=== PATIENT | female | born 1945 | race Caucasian/White ===

== ENCOUNTER 2019-06-22 13:57 | Inpatient (IN) ==
[2019-06-22] MEDS ORDERED: *HR* FentaNYL (PF) 100 MCG/2 ML VIAL IVP ONE (15:15)
[2019-06-22] MEDS ORDERED: Gadolinium Contrast Agent (WT Based) IV PRN (15:16)
[2019-06-22 15:24] LABS: Basophils # 0.1 K/mcL (0.0-0.2); Basophils % 0.8 %; Eosinophils # 0.1 K/mcL (0.0-0.6); Hemoglobin 14.1 g/dL (11.5-15.4); Immature Granulocytes % 0.2 % (0-4); Lymphocytes # 1.9 K/mcL (0.6-4.6); Lymphocytes % 29.7 %; Mean Corpuscular HGB Conc 36.2 g/dL (31.6-35.5); Mean Corpuscular Hemoglobin 31.7 pg (28.0-33.3); Mean Corpuscular Volume 87.6 fL (83.0-100.0); Mean Platelet Volume 9.9 fL (9.4-12.4); Monocytes # 0.7 K/mcL (0.0-1.3); Monocytes % 10.1 %; Neutrophils # 3.7 K/mcL (1.6-8.9); Platelet Count 185 K/mcL (140-400); Red Blood Count 4.45 M/mcL (3.82-4.97); Red Cell Distribution Width 12.4 % (11.5-14.5); Segmented Neutrophils % 57.2 %; White Blood Count 6.4 K/mcL (4.3-11.1)
[2019-06-22 15:46] LABS: Alanine Aminotransferase 24 Units/L (7-52); Albumin 4.3 g/dL (3.5-5.7); Albumin/Globulin Ratio 1.4 (1.1-2.2); Alkaline Phosphatase 52 Units/L (34-104); Aspartate Amino Transferase 19 Units/L (13-39); BUN/Creatinine Ratio 15 (6-26); Bilirubin,Total 0.5 mg/dL (0.3-1.0); Blood Urea Nitrogen 16 mg/dL (8-23); Calcium 9.5 mg/dL (8.6-10.3); Carbon Dioxide 23 mEq/L (23-29); Chloride 103 mEq/L (98-107); Glucose 106 mg/dL (70-105); Osmolality,Calculated 284 (280-300); Potassium 4.3 mEq/L (3.5-5.1); Sodium 136 mEq/L (136-145); Total Protein 7.3 g/dL (6.4-8.9); Troponin I < 0.03 ng/mL (< 0.04); eGFR For African Americans 60 (> 60); eGFR For Non-African Americans 49 (> 60)
[2019-06-22] MEDS ORDERED: *HR* LORazepam 2 MG/ML VIAL IVP ONE (15:47)
[2019-06-22] MEDS ORDERED: *HR* HYDROmorphone (PF) 1 MG/ML SYRINGE IVP ONE ×2 (16:14→18:50)
[2019-06-22] MEDS: valACYclovir 500 MG TABLET PO SCH ×2 (16:24→21:21)
[2019-06-22] MEDS ORDERED: Ondansetron 4 MG/2 ML VIAL IVP ONE (16:27)
[2019-06-22] MEDS ORDERED: Ondansetron 4 MG/2 ML VIAL IVP PRN (21:26)
[2019-06-22] MEDS ORDERED: Naloxone 0.4 MG/ML INJ IVP PRN (21:26)
[2019-06-22] MEDS ORDERED: 0.9 % Sodium Chloride 1,000 ML IVC SCH (21:30)
[2019-06-22] MEDS: diazePAM 10 MG TABLET PO SCH (22:08)
[2019-06-22] MEDS: Gabapentin 100 MG CAPSULE PO SCH (23:11)
[2019-06-23 04:51] LABS: Basophils # 0.1 K/mcL (0.0-0.2); Basophils % 0.7 %; Eosinophils # 0.1 K/mcL (0.0-0.6); Eosinophils % 1.8 %; Hematocrit 38.5 % (35.3-44.9); Hemoglobin 13.2 g/dL (11.5-15.4); Immature Granulocytes % 0.3 % (0-4); Lymphocytes # 2.1 K/mcL (0.6-4.6); Lymphocytes % 30.6 %; Mean Corpuscular HGB Conc 34.3 g/dL (31.6-35.5); Mean Corpuscular Hemoglobin 30.8 pg (28.0-33.3); Mean Platelet Volume 10.1 fL (9.4-12.4); Monocytes # 0.7 K/mcL (0.0-1.3); Monocytes % 9.7 %; Neutrophils # 3.8 K/mcL (1.6-8.9); Platelet Count 188 K/mcL (140-400); Red Blood Count 4.28 M/mcL (3.82-4.97); Red Cell Distribution Width 12.6 % (11.5-14.5); Segmented Neutrophils % 56.9 %; White Blood Count 6.7 K/mcL (4.3-11.1)
[2019-06-23 04:55] LABS: Prothrombin Time 11.8 Seconds (9.4-12.1)
[2019-06-23 04:58] LABS: Activated Partial Thrombo Time 30.3 Seconds (26.0-36.0)
[2019-06-23 05:12] LABS: Alanine Aminotransferase 19 Units/L (7-52); Albumin 3.9 g/dL (3.5-5.7); Albumin/Globulin Ratio 1.5 (1.1-2.2); Alkaline Phosphatase 51 Units/L (34-104); Aspartate Amino Transferase 17 Units/L (13-39); BUN/Creatinine Ratio 12 (6-26); Bilirubin,Total 0.5 mg/dL (0.3-1.0); Blood Urea Nitrogen 12 mg/dL (8-23); Calcium 9.1 mg/dL (8.6-10.3); Carbon Dioxide 25 mEq/L (23-29); Chloride 103 mEq/L (98-107); Chol/HDL Ratio 3.8 (0-4.9); Cholesterol 159 mg/dL (< 200); Globulin 2.6 g/dL (2.4-3.5); Glucose 100 mg/dL (70-105); HDL Cholesterol 42 mg/dL (40-59); LDL Cholesterol,Calculated 97 mg/dL (0-99); Osmolality,Calculated 286 (280-300); Potassium 3.9 mEq/L (3.5-5.1); Sodium 138 mEq/L (136-145); Total Protein 6.5 g/dL (6.4-8.9); Triglycerides 102 mg/dL (< 150); eGFR For African Americans > 60 (> 60); eGFR For Non-African Americans 54 (> 60)
[2019-06-23] MEDS: *HR* Heparin 5,000 UNIT/ML VIAL SQ SCH ×3 (05:34→21:15)
[2019-06-23] MEDS ORDERED: *HR* Labetalol 20 MG/4 ML SYRINGE IVP PRN (07:42)
[2019-06-23] MEDS: Furosemide 20 MG TABLET PO SCH (08:32)
[2019-06-23] MEDS: valACYclovir 500 MG TABLET PO SCH ×2 (08:32→21:13)
[2019-06-23] MEDS: diazePAM 10 MG TABLET PO SCH ×2 (08:32→21:13)
[2019-06-23] MEDS: Aspirin Enteric Coated 81 MG Tablet PO SCH (08:32)
[2019-06-23] MEDS: Gabapentin 100 MG CAPSULE PO SCH ×3 (08:32→21:14)
[2019-06-24] MEDS: *HR* Heparin 5,000 UNIT/ML VIAL SQ SCH ×2 (05:38→20:30)
[2019-06-24] MEDS: Furosemide 20 MG TABLET PO SCH (09:25)
[2019-06-24] MEDS: valACYclovir 500 MG TABLET PO SCH ×2 (09:25→20:09)
[2019-06-24] MEDS: diazePAM 10 MG TABLET PO SCH ×2 (09:25→20:09)
[2019-06-24] MEDS: Gabapentin 100 MG CAPSULE PO SCH ×2 (09:25→20:09)
[2019-06-24] MEDS: Aspirin Enteric Coated 81 MG Tablet PO SCH (09:31)
[2019-06-24] MEDS ORDERED: Gabapentin 100 MG CAPSULE PO ONE (10:45)
[2019-06-24 17:25] LABS: Clarity,Urine Cloudy (Clear); Color,Urine Yellow (Yellow)
[2019-06-24 17:26] LABS: Bilirubin,Urine Negative (Negative); Blood,Urine Large (Negative); Glucose,Urine (UA) Normal (Normal); Ketones,Urine Negative (Negative); Leukocyte Esterase,Urine Negative (Negative); Nitrite,Urine Negative (Negative); Protein,Urine 30 mg/dL (Neg-Trace); Specific Gravity,Urine 1.015 (1.010-1.025); Urobilinogen,Urine Normal (Normal)
[2019-06-24 17:39] LABS: Squamous Epithelial Cell,Urine Moderate per lpf (None-Few)
[2019-06-24 17:40] LABS: RBC,Urine 30-50 per hpf (0-3); WBC,Urine 0-3 per hpf (0-3)
[2019-06-25] MEDS: valACYclovir 500 MG TABLET PO SCH ×2 (08:47→21:53)
[2019-06-25] MEDS: Gabapentin 100 MG CAPSULE PO SCH ×2 (08:47→21:53)
[2019-06-25] MEDS: Furosemide 20 MG TABLET PO SCH (08:47)
[2019-06-25] MEDS: Metoprolol XL (24 HR) Succ 50 MG TAB.ER.24H PO SCH (08:48)
[2019-06-25] MEDS: diazePAM 10 MG TABLET PO SCH ×2 (08:48→21:53)
[2019-06-25] MEDS: Aspirin Enteric Coated 81 MG Tablet PO SCH (08:53)
[2019-06-25] MEDS ORDERED: Metoprolol XL (24 HR) Succ 50 MG TAB.ER.24H PO SCH (09:00)
[2019-06-26] MEDS: Aspirin Enteric Coated 81 MG Tablet PO SCH (07:22)
[2019-06-26] MEDS: valACYclovir 500 MG TABLET PO SCH ×2 (07:23→21:37)
[2019-06-26] MEDS: Furosemide 20 MG TABLET PO SCH (07:23)
[2019-06-26] MEDS: Gabapentin 100 MG CAPSULE PO SCH ×2 (07:23→21:38)
[2019-06-26] MEDS: diazePAM 10 MG TABLET PO SCH ×2 (07:24→21:37)
[2019-06-26] MEDS: Metoprolol XL (24 HR) Succ 50 MG TAB.ER.24H PO SCH (07:24)
[2019-06-27] MEDS: Furosemide 20 MG TABLET PO SCH (07:49)
[2019-06-27] MEDS: Aspirin Enteric Coated 81 MG Tablet PO SCH (07:49)
[2019-06-27] MEDS: diazePAM 10 MG TABLET PO SCH (07:50)
[2019-06-27] MEDS: Metoprolol XL (24 HR) Succ 50 MG TAB.ER.24H PO SCH (07:50)
[2019-06-27] MEDS: Gabapentin 100 MG CAPSULE PO SCH ×2 (07:50→20:20)
[2019-06-27] MEDS: valACYclovir 500 MG TABLET PO SCH ×2 (07:50→20:20)
[2019-06-27 09:25] LABS: Calcium 9.5 mg/dL (8.6-10.3); Magnesium 2.3 mg/dL (1.6-2.6); Potassium 4.4 mEq/L (3.5-5.1)
[2019-06-28] MEDS: valACYclovir 500 MG TABLET PO SCH ×2 (08:11→22:47)
[2019-06-28] MEDS: diazePAM 5 MG TABLET PO SCH ×2 (08:11→22:47)
[2019-06-28] MEDS: Metoprolol XL (24 HR) Succ 50 MG TAB.ER.24H PO SCH (08:11)
[2019-06-28] MEDS: Aspirin Enteric Coated 81 MG Tablet PO SCH (08:11)
[2019-06-28] MEDS: Gabapentin 100 MG CAPSULE PO SCH (08:11)
[2019-06-28] MEDS: Furosemide 20 MG TABLET PO SCH (08:12)
[2019-06-28] MEDS ORDERED: Ketorolac 15 MG/ML VIAL IVP ONE (13:44)
[2019-06-28] MEDS: Gabapentin 300 MG CAPSULE PO SCH ×2 (14:56→22:47)
[2019-06-29] MEDS: Gabapentin 300 MG CAPSULE PO SCH ×3 (10:12→21:42)
[2019-06-29] MEDS: Aspirin Enteric Coated 81 MG Tablet PO SCH (10:12)
[2019-06-29] MEDS: diazePAM 5 MG TABLET PO SCH ×2 (10:12→21:42)
[2019-06-29] MEDS: valACYclovir 500 MG TABLET PO SCH ×2 (10:13→21:42)
[2019-06-29] MEDS: Metoprolol XL (24 HR) Succ 50 MG TAB.ER.24H PO SCH (10:13)
[2019-06-29] MEDS: Furosemide 20 MG TABLET PO SCH (10:13)
[2019-06-30 06:59] LABS: Hematocrit 42.6 % (35.3-44.9); Hemoglobin 14.5 g/dL (11.5-15.4); Mean Corpuscular Hemoglobin 30.8 pg (28.0-33.3); Mean Corpuscular Volume 90.4 fL (83.0-100.0); Mean Platelet Volume 10.7 fL (9.4-12.4); Platelet Count 121 K/mcL (140-400); Red Blood Count 4.71 M/mcL (3.82-4.97); Red Cell Distribution Width 12.8 % (11.5-14.5); White Blood Count 6.9 K/mcL (4.3-11.1)
[2019-06-30 08:16] LABS: BUN/Creatinine Ratio 19 (6-26); Blood Urea Nitrogen 19 mg/dL (8-23); Calcium 9.3 mg/dL (8.6-10.3); Carbon Dioxide 16 mEq/L (23-29); Chloride 101 mEq/L (98-107); Glucose 103 mg/dL (70-105); Magnesium 2.4 mg/dL (1.6-2.6); Osmolality,Calculated 283 (280-300); Potassium 4.6 mEq/L (3.5-5.1); Sodium 135 mEq/L (136-145); eGFR For African Americans > 60 (> 60); eGFR For Non-African Americans 54 (> 60)
[2019-06-30] MEDS: valACYclovir 500 MG TABLET PO SCH (08:48)
[2019-06-30] MEDS: Metoprolol XL (24 HR) Succ 50 MG TAB.ER.24H PO SCH (08:48)
[2019-06-30] MEDS: diazePAM 5 MG TABLET PO SCH (08:48)
[2019-06-30] MEDS: Aspirin Enteric Coated 81 MG Tablet PO SCH (08:48)
[2019-06-30] MEDS: Gabapentin 300 MG CAPSULE PO SCH ×2 (08:48→16:29)
[2019-06-30] MEDS: Furosemide 20 MG TABLET PO SCH (08:48)
[2019-06-30 11:10] VITALS: BP 100/65
== END 2019-06-30 17:03 | DRG 866 ==
LOC: 3ANU 13:57 → EMEROOARM 13:57 → SUATTDRO 20:29 → 3ANU 21:40
PROVIDERS: ADMIT Internal Medicine; ATTEND Internal Medicine